=== PATIENT | female | born 1995 | race African-American/Black ===

== ENCOUNTER 2021-03-25 14:55 | Emergency (ER) | payer OTHER, BC ==
[2021-03-25] MEDS ORDERED: Ondansetron ODT 4 MG TAB ONE (16:01)
[2021-03-25] MEDS ORDERED: Ketorolac Tromethamine 30 MG/ML VIAL ONE (16:30)
== END 2021-03-25 17:10 | disposition home or self-care (01) ==
LOC: CSHERS 14:55
DX: R51.9 Headache, unspecified (principal); V43.52XA Car driver injured in collision with other type car in traffic accident, initial encounter
CPT/HCPCS: 72040; 96372; J1885; Q0162

== ENCOUNTER 2021-09-24 20:48 | Emergency (ER) | payer BC ==
[2021-09-24] MEDS ORDERED: Lidocaine 1% w/Epinephrine 1:100K 20 ML VIAL ONE (21:52)
[2021-09-24] MEDS ORDERED: Ibuprofen 200 MG TAB ONE (21:52)
[2021-09-24] MEDS ORDERED: Acetaminophen 500 MG TAB ONE (21:53)
== END 2021-09-24 22:52 | disposition home or self-care (01) ==
LOC: CSHERS 20:48
DX: S01.111A Laceration without foreign body of right eyelid and periocular area, initial encounter (principal); W25.XXXA Contact with sharp glass, initial encounter
CPT/HCPCS: 12011

== ENCOUNTER 2021-11-05 00:17 | Emergency (ER) | payer BC | END 2021-11-05 01:24 | disposition home or self-care (01) | LOC: CSHERS 00:17 | DX: J18.9 Pneumonia, unspecified organism (principal) | CPT/HCPCS: 71045 ==

== ENCOUNTER 2021-12-15 19:34 | Emergency (ER) | payer BC ==
[2021-12-15] MEDS ORDERED: Tetracaine 0.5% PF 4 ML BOT ONE (23:27)
[2021-12-15] MEDS ORDERED: Fluorescein Opthalmic Strip ONE (23:27)
== END 2021-12-15 23:50 | disposition home or self-care (01) ==
LOC: CSHERS 19:34
DX: U07.1 COVID-19 (principal)
CPT/HCPCS: 99283

== ENCOUNTER 2022-04-06 03:33 | Emergency (ER) | payer BC, SELFPAY ==
[2022-04-06] MEDS ORDERED: Morphine 4 MG/ML VIAL ONE (04:19)
[2022-04-06] MEDS ORDERED: Ondansetron PF 4 MG/2 ML Vial ONE (04:19)
[2022-04-06 04:40] LABS: #Basophils 0.1 10x3/uL (0.0-0.2); #Eosinphils 0.2 10x3/uL (0.0-0.5); #Monocytes 0.7 10x3/uL (0.0-1.1); #Neutrophils 3.5 10x3/uL (1.5-8.4); %Basophils 0.9 % (0.0-2.0); %Eosinophils 2.5 % (0.0-6.0); %Lymphocytes 30.4 % (18.0-47.0); %Monocytes 10.6 % (0.0-10.0); %Neutrophils 55.4 % (40.0-75.0); Hemoglobin 12.1 g/dL (12.0-15.5); Mean Corpuscular HGB CONC 33.2 g/dL (32.0-36.0); Mean Corpuscular Volume 90.3 fl (81.6-98.3); Mean Platelet Volume 9.2 fl (7.4-10.4); Platelet Count 297 10x3/uL (150-450); RBC Distribution Width 12.9 % (11.5-14.5); Red Blood Cell (RBC) Count 4.03 10x6/uL (3.90-5.03); White Blood Cell (WBC) Count 6.3 10x3/uL (3.5-10.5)
[2022-04-06 04:41] LABS: ALT (SGPT) 6 U/L (8-55); AST (SGOT) 11 U/L (5-34); Albumin 3.8 g/dL (3.5-5.0); Alkaline Phosphatase 49 U/L (40-110); Anion Gap 14 mmol/L (10-20); BUN (Urea Nitrogen) 12 mg/dL (7.0-18.7); Bilirubin, Total 0.3 mg/dL (0.2-1.2); Calc. Creatinine Clearance 0 mL/min (70-130); Calcium 8.7 mg/dL (7.8-10.44); Carbon Dioxide 24 mmol/L (22-29); Chloride 106 mmol/L (98-107); Globulin 2.9 g/dL (2.4-3.5); Glucose 95 mg/dL (70-105); Lipase 15 U/L (8-78); Potassium 3.9 mmol/L (3.5-5.1); Protein, Total 6.7 g/dL (6.0-8.3); Sodium 140 mmol/L (136-145)
[2022-04-06 04:43] LABS: Bilirubin Neg (Negative); Blood, Urine 10 (Negative); Clarity Slightly Cloudy (Clear); Glucose, Urine (Dipstick) Normal (Negative); Ketone, Urine Negative (Negative); Leukocyte Negative (Negative); Nitrite Negative (Negative); Protein, Urine (Dipstick) Negative (Neg-Trace); Specific Gravity, Urine 1.025 (1.002-1.036); Urobilinogen Normal mg/dL (Less than 2)
[2022-04-06 05:00] LABS: Bacteria/HPF None Seen HPF (None Seen); RBC/HPF 0-3 HPF (0-3); WBC/HPF 0-3 HPF (0-3)
[2022-04-06] MEDS ORDERED: Ketorolac Tromethamine 30 MG/ML VIAL ONE (05:29)
[2022-04-06] MEDS ORDERED: Iopamidol 300 61% 100 ML VIAL FS ONE (09:41)
== END 2022-04-06 06:33 | disposition home or self-care (01) ==
LOC: CSHERS 03:33
DX: K29.00 Acute gastritis without bleeding (principal)
CPT/HCPCS: 74177; 80053; 81003; 81015; 83690; 85025; 96374; 96375; J1885; J2270; J2405; Q9967

== ENCOUNTER 2022-04-07 12:14 | Emergency (ER) | payer BC, SELFPAY ==
[2022-04-07] MEDS ORDERED: Ondansetron PF 4 MG/2 ML Vial ONE (13:27)
[2022-04-07] MEDS ORDERED: Morphine 4 MG/ML VIAL ONE (13:27)
[2022-04-07 13:45] LABS: #Eosinphils 0.1 10x3/uL (0.0-0.5); #Monocytes 0.6 10x3/uL (0.0-1.1); #Neutrophils 3.4 10x3/uL (1.5-8.4); %Basophils 0.8 % (0.0-2.0); %Eosinophils 1.1 % (0.0-6.0); %Lymphocytes 24.3 % (18.0-47.0); %Monocytes 10.4 % (0.0-10.0); %Neutrophils 63.2 % (40.0-75.0); Hemoglobin 12.4 g/dL (12.0-15.5); Mean Corpuscular HGB CONC 33.3 g/dL (32.0-36.0); Mean Corpuscular Hemoglobin 29.7 pg (27.0-33.0); Mean Corpuscular Volume 89.2 fl (81.6-98.3); Mean Platelet Volume 9.3 fl (7.4-10.4); Platelet Count 301 10x3/uL (150-450); RBC Distribution Width 12.6 % (11.5-14.5); Red Blood Cell (RBC) Count 4.17 10x6/uL (3.90-5.03); White Blood Cell (WBC) Count 5.3 10x3/uL (3.5-10.5)
[2022-04-07 13:51] LABS: BHCG - Serum Negative (NEGATIVE); Pregs Control Background? CLEAR/WHITE (CLR/WHITE); Pregs Control Bar Appear? YES (CONTROL BAR)
[2022-04-07 13:56] LABS: ALT (SGPT) 7 U/L (8-55); AST (SGOT) 13 U/L (5-34); Albumin 4.2 g/dL (3.5-5.0); Alkaline Phosphatase 50 U/L (40-110); Anion Gap 14 mmol/L (10-20); BUN (Urea Nitrogen) 9 mg/dL (7.0-18.7); Bilirubin, Total 0.6 mg/dL (0.2-1.2); Calc. Creatinine Clearance 0 mL/min (70-130); Calcium 8.9 mg/dL (7.8-10.44); Carbon Dioxide 26 mmol/L (22-29); Chloride 102 mmol/L (98-107); Globulin 3.1 g/dL (2.4-3.5); Glucose 77 mg/dL (70-105); Lipase 10 U/L (8-78); Potassium 3.7 mmol/L (3.5-5.1); Protein, Total 7.3 g/dL (6.0-8.3); Sodium 138 mmol/L (136-145)
[2022-04-07] MEDS ORDERED: Lidocaine Viscous Sol 2% 15 ml UD Cup ONE (14:46)
[2022-04-07] MEDS ORDERED: Mag-Al Plus 1200 MG/1200 MG/120 MG/30 ML UDCUP ONE (14:46)
[2022-04-07 14:58] LABS: Bilirubin Neg (Negative); Blood, Urine Negative (Negative); Clarity Clear (Clear); Glucose, Urine (Dipstick) Normal (Negative); Ketone, Urine 15 mg/dL (Negative); Leukocyte Negative (Negative); Nitrite Negative (Negative); Protein, Urine (Dipstick) Negative (Neg-Trace); Specific Gravity, Urine 1.005 (1.002-1.036); Urobilinogen Normal mg/dL (Less than 2)
== END 2022-04-07 15:35 | disposition home or self-care (01) ==
LOC: CSHERS 12:14
DX: K29.70 Gastritis, unspecified, without bleeding (principal)
CPT/HCPCS: 74177; 80053; 81003; 83690; 84703; 85025; 96374; 96375; J2270; J2405

== ENCOUNTER 2022-07-15 19:35 | Emergency (ER) | payer BC ==
[2022-07-15] MEDS ORDERED: diphenhydrAMINE 50 MG/ML VIAL ONE (20:20)
[2022-07-15] MEDS ORDERED: Metoclopramide HCl 10 MG/2 ML VIAL ONE (20:20)
[2022-07-15] MEDS ORDERED: Ketorolac Tromethamine 30 MG/ML VIAL ONE (20:21)
[2022-07-15] MEDS ORDERED: Magnesium 2 GM/50 ML BAG (IN WATER) ONE (20:21)
[2022-07-15] MEDS ORDERED: Acetaminophen 500 MG TAB ONE (20:21)
== END 2022-07-15 21:25 | disposition home or self-care (01) ==
LOC: CSHERS 19:35
DX: R51.9 Headache, unspecified (principal)
CPT/HCPCS: 96374; 96375; J1200; J1885; J2765; J3475

== ENCOUNTER 2022-09-06 13:11 | Emergency (ER) | payer BC, SELFPAY ==
[2022-09-06 14:23] LABS: Bilirubin Neg (Negative); Blood, Urine Negative (Negative); Glucose, Urine (Dipstick) Normal (Negative); Ketone, Urine Negative (Negative); Leukocyte Negative (Negative); Nitrite Negative (Negative); Protein, Urine (Dipstick) 15 mg/dl (Neg-Trace); Urobilinogen Normal mg/dL (Less than 2)
[2022-09-06 14:25] LABS: Clarity Very Cloudy (Clear)
[2022-09-06] MEDS ORDERED: Ibuprofen 200 MG TAB ONE (14:44)
[2022-09-06 15:29] LABS: #Eosinphils 0.1 10x3/uL (0.0-0.5); #Monocytes 0.5 10x3/uL (0.0-1.1); #Neutrophils 3.2 10x3/uL (1.5-8.4); %Basophils 0.7 % (0.0-2.0); %Eosinophils 1.2 % (0.0-6.0); %Lymphocytes 36.1 % (18.0-47.0); %Monocytes 7.6 % (0.0-10.0); %Neutrophils 54.2 % (40.0-75.0); Hemoglobin 12.9 g/dL (12.0-15.5); Mean Corpuscular HGB CONC 33.7 g/dL (32.0-36.0); Mean Corpuscular Hemoglobin 30.5 pg (27.0-33.0); Mean Corpuscular Volume 90.5 fl (81.6-98.3); Mean Platelet Volume 9.4 fl (7.4-10.4); Platelet Count 363 10x3/uL (150-450); RBC Distribution Width 12.8 % (11.5-14.5); Red Blood Cell (RBC) Count 4.23 10x6/uL (3.90-5.03); White Blood Cell (WBC) Count 5.9 10x3/uL (3.5-10.5)
[2022-09-06 15:38] LABS: Anion Gap 12 mmol/L (10-20); BUN (Urea Nitrogen) 10 mg/dL (7.0-18.7); Carbon Dioxide 26 mmol/L (22-29); Chloride 104 mmol/L (98-107); Potassium 4.3 mmol/L (3.5-5.1); Sodium 138 mmol/L (136-145)
[2022-09-06 15:39] LABS: ALT (SGPT) 6 U/L (8-55); AST (SGOT) 11 U/L (5-34); Albumin 4.4 g/dL (3.5-5.0); Alkaline Phosphatase 69 U/L (40-110); Bilirubin, Total 0.5 mg/dL (0.2-1.2); Calc. Creatinine Clearance 0 mL/min (70-130); Calcium 9.7 mg/dL (7.8-10.44); Estimated GFR 107; Globulin 3.2 g/dL (2.4-3.5); Glucose 86 mg/dL (70-105); Protein, Total 7.6 g/dL (6.0-8.3)
[2022-09-07 14:11] LABS: Chlamydia by PCR Not Detected (NotDetected); GC by PCR Not Detected (NotDetected)
== END 2022-09-06 18:24 | disposition home or self-care (01) ==
LOC: CSHERS 13:11
DX: N76.0 Acute vaginitis (principal)
CPT/HCPCS: 36415; 76856; 80053; 81003; 85025; 87086; 87480; 87491; 87510; 87591; 87660

== ENCOUNTER 2023-10-06 18:55 | Emergency (ER) | payer BC, SELFPAY ==
[2023-10-06] MEDS ORDERED: Acetaminophen 500 MG TAB ONE (20:01)
== END 2023-10-06 20:15 | disposition home or self-care (01) ==
LOC: CSHERS 18:55
DX: R51.9 Headache, unspecified (principal)
CPT/HCPCS: 99283

== ENCOUNTER 2024-02-07 21:37 | Emergency (ER) | payer SELFPAY ==
[2024-02-07] MEDS ORDERED: HYDROcodone/Acetaminophen 5/325 mg Tablet ONE (22:34)
== END 2024-02-07 23:05 | disposition home or self-care (01) ==
LOC: CSHERS 21:37
DX: S13.4XXA Sprain of ligaments of cervical spine, initial encounter (principal); S09.90XA Unspecified injury of head, initial encounter; M54.6 Pain in thoracic spine; V89.2XXA Person injured in unspecified motor-vehicle accident, traffic, initial encounter
CPT/HCPCS: 70450; 71045; 72125